=== PATIENT | female | born 1965 | race Native Hawaiian/Other Pacific Islander ===

== ENCOUNTER 2018-11-19 11:28 | Outpatient (CLI) | payer OTHER | END 2018-11-19 11:29 | disposition home or self-care (01) | LOC: C.RT 11:28 | DX: R06.00 Dyspnea, unspecified (principal) ==

== ENCOUNTER 2019-01-31 10:24 | Outpatient (CLI) | payer OTHER | END 2019-01-31 10:25 | disposition home or self-care (01) | LOC: C.RADH 10:24 ==